=== PATIENT | female | born 1970 | race Caucasian/White ===

== ENCOUNTER → 2016-07-28 | Outpatient (REF) | LOC: M LAB 15:17 | PROVIDERS: ATTEND Nurse Practitioner Adult Health | DX: Z00.00 Encounter for general adult medical examination without abnormal findings (principal) ==

== ENCOUNTER 2017-03-15 11:54 | Day surgery (SDC) | payer OTHER ==
[~2017-03-15] VITALS: Ht 165.1 cm; Wt 81.6 kg
[~2017-03-15 11:54] MED LIST: LEVO75TA4 PO
[2017-03-15] MEDS ORDERED: LR 1,000 ML IV ONE (12:00)
[2017-03-15] MEDS ORDERED: ceFAZolin SOD 1 GM in D5W MINI-BAG PLUS 50 ML IV ONE (12:00)
[2017-03-15] MEDS ORDERED: fentaNYL 100 MCG/2 ML INJECTION (J3010) As Ordered ONE ×2 (15:22→19:45)
[2017-03-15] MEDS ORDERED: ROCURONIUM BROMIDE 50 MG/5 ML VIAL/SYRINGE As Ordered ONE (15:22)
[2017-03-15] MEDS ORDERED: MIDAZOLAM INJ 2 MG/2 ML VIAL (J2250) As Ordered ONE (15:22)
[2017-03-15] MEDS ORDERED: KETOROLAC 60 MG/2 ML VIAL (J1885) As Ordered ONE (15:22)
[2017-03-15] MEDS ORDERED: ONDANSETRON 4MG/2ML VIAL (J2405) As Ordered ONE ×2 (15:22→19:46)
[2017-03-15] MEDS ORDERED: dexameTHASONE 4 MG/ML 1ML VIAL (J1100) As Ordered ONE (15:22)
[2017-03-15] MEDS ORDERED: PROPOFOL 200 MG/20 ML VIAL As Ordered ONE (15:22)
[2017-03-15] MEDS ORDERED: LIDOCAINE 2% INJ 100 MG/5 ML SDV (FOR ANES.) As Ordered ONE (15:22)
[2017-03-15] MEDS ORDERED: CONRAY-60 60% 50ML VIAL (Q9961) As Ordered ONE (15:28)
[2017-03-15] MEDS ORDERED: GLUCAGON FOR INJ 1 MG VIAL (J1610) As Ordered ONE (15:28)
[2017-03-15] MEDS ORDERED: BUPIVACAINE/EPIN 0.25% 30 ML VIAL As Ordered ONE (15:28)
[2017-03-15] MEDS ORDERED: NEOSTIGMINE 10 MG/10 ML VIAL (J2710) As Ordered ONE (18:55)
[2017-03-15] MEDS ORDERED: GLYCOPYRROLATE INJ 0.2 MG/ML 2 ML VIAL As Ordered ONE (18:55)
[2017-03-15] MEDS ORDERED: PERCOCET 5MG/325MG TAB As Ordered ONE (19:45)
[2017-03-15] MEDS: fentaNYL 100 MCG/2 ML INJECTION (J3010) IV PRN ×6 (19:50→20:30)
[2017-03-15] MEDS ORDERED: ONDANSETRON 4MG/2ML VIAL (J2405) IV PRN ×2 (20:00)
[2017-03-15] MEDS ORDERED: NORCO, ANEXSIA 5/325MG TABLET (HYDROcodone/ACETAMINOPHEN) PO PRN (20:00)
[2017-03-15] MEDS ORDERED: LR 1,000 ML IV SCH ×2 (20:00)
[2017-03-15] MEDS: PERCOCET 5MG/325MG TAB PO PRN ×2 (20:00→20:31)
[2017-03-15] MEDS ORDERED: METOCLOPRAMIDE INJ 10MG/2ML VIAL (J2765) IV PRN (20:00)
[2017-03-15] MEDS ORDERED: MORPHINE 2 MG/ML 1ML SYRINGE IV PRN (20:00)
[2017-03-15 22:01] VITALS: BP 126/58
--- NOTE | 2017-03-30 06:09 | RO ---
DATE OF PROCEDURE: 03/15/2017 PREOPERATIVE DIAGNOSIS: Symptomatic gallstones. POSTOPERATIVE DIAGNOSIS: Symptomatic gallstones. PROCEDURE: Laparoscopic cholecystectomy. SURGEON: Dr. Rodney Anaya LOGISTIC MANAGER: ANESTHESIA: General endotracheal anesthesia. ESTIMATED BLOOD LOSS: Minimal. FLUIDS: Crystalloid. BRIEF PROCEDURE SUMMARY: The patient was brought to the operating room and was given general anesthesia. After adequate anesthesia and preoperative antibiotics were given, the patient was prepped and draped in the usual sterile fashion. Next, a periumbilical incision was made with skin knife. Blunt dissection was carried down to fascia. Fascia was grasped with Jeanette clamps, elevated and a Veress needle placed into the abdominal cavity and insufflated to 15 mm of pressure. A dilating 10 mm trocar was placed at the umbilicus and under direct visualization an epigastric and two lateral trocars were placed. Next, the gallbladder was grasped, retracted superiorly and there were numerous adhesions of the gallbladder to the omentum which were taken down with hook cautery. Once this was cleared, there were some adhesions in the right lateral abdomen as well that were taken down with hook cautery. The gallbladder was able to be retracted adequately and superiorly enough to get to the neck of the gallbladder where the neck of the gallbladder then was cleared of peritoneum laterally and then anteriorly and then working over medially. This was where the cystic artery was well visualized, surrounded using the hook cautery and a posterior opening behind the neck of the gallbladder was able to be made using minimal blunt dissection as well as the hook cautery, both starting lateral as well as medial and continuing to work this area down to the neck of the gallbladder/cystic duct junction. Once the gallbladder was further dissected off the liver bed and seeing the cystic plate, a critical view of safety was obtained and the cystic artery was clipped proximally and distally and transected. Then, even a bigger view behind the neck of the gallbladder was created and the cystic artery was able to be followed even further. This was clipped proximally and distally and transected at the cystic duct/gallbladder neck junction. The gallbladder was taken from the gallbladder bed, placed in an EndoCatch bag and brought out through the umbilicus. #0 Vicryl was used close the fascia at the umbilicus after the right upper quadrant was copiously irrigated until clear and #4-0 Vicryl was used close all incisions. Steri-Strips and a dry sterile dressing was applied. The patient was awakened from her anesthesia, extubated, and brought to the recovery room awake, alert and hemodynamically stable.
== END 2017-03-15 22:04 | disposition home or self-care (01) ==
LOC: M SDC 11:54
PROVIDERS: ATTEND Surgery
DX: K80.10 Calculus of gallbladder with chronic cholecystitis without obstruction (principal); E03.9 Hypothyroidism, unspecified; M32.9 Systemic lupus erythematosus, unspecified; G47.30 Sleep apnea, unspecified; Z87.440 Personal history of urinary (tract) infections; Z78.0 Asymptomatic menopausal state; Z87.891 Personal history of nicotine dependence; Z79.899 Other long term (current) drug therapy; Z88.0 Allergy status to penicillin; Z88.1 Allergy status to other antibiotic agents
CPT/HCPCS: 47562; 88304; J0690; J1100; J1885; J2250; J2405; J2710; J3010

== ENCOUNTER → 2017-07-01 | Outpatient (CLI) | payer OTHER | LOC: M WUC 14:17 | DX: M77.31 Calcaneal spur, right foot (principal); M79.671 Pain in right foot | CPT/HCPCS: 73630 ==

== ENCOUNTER → 2017-10-26 | Outpatient (CLI) | payer OTHER | LOC: M RAD 14:04 | DX: Z12.31 Encounter for screening mammogram for malignant neoplasm of breast (principal) | CPT/HCPCS: 77067 ==

== ENCOUNTER → 2018-10-18 | Outpatient (CLI) | payer OTHER ==
--- NOTE | 2018-10-18 14:20 | REPMRS ---
Patient History The patient states she has not had a clinical breast exam in over a year. Family history of prostate cancer at age 70 in maternal grandfather. Taking unspecified hormones for 10 years. 2D only. Digital Mammo Screening Bilat: October 18, 2018 - Exam #: [id number] Bilateral CC and MLO view(s) were taken. Technologist: Ewa Ramos, Technologist Prior study comparison: October 26, 2017, bilateral digital mammo screening bilat performed at [facility]. FINDINGS: There are scattered fibroglandular densities. There has been no change in the appearance of the mammogram from the prior studies. There is a mild amount of scattered fibroglandular density which is fairly symmetric. There is no interval development of dominant mass, architectural distortion, or clustered microcalcification suggestive of malignancy. Assessment: BI-RADS/ACR category 1 mammogram. Negative Mammogram. Recommendation Routine screening mammogram of both breasts in 1 year (for women over age 40). This patient's Lifetime Breast Cancer RIsk is estimated at 11.5 %. This mammogram was interpreted with the aid of an FDA-approved computer-aided dectection system. Electronically Signed By: Cedrick Vasquez MD 10/18/18 [id number]
== END ==
LOC: M RAD 10:26
PROVIDERS: ATTEND Internal Medicine
DX: Z12.31 Encounter for screening mammogram for malignant neoplasm of breast (principal); Z79.3 Long term (current) use of hormonal contraceptives